=== PATIENT | female | born 2000 | race Caucasian/White ===

== ENCOUNTER → 2023-12-24 | Outpatient (CLI) | payer OTHER | LOC: M RAD 12:28 | PROVIDERS: ATTEND Student in an Organized Health Care Education/Training Program | DX: M54.50 Low back pain, unspecified (principal) ==

== ENCOUNTER → 2025-02-15 | Outpatient (CLI) | payer BC | LOC: M LAB 16:04 | PROVIDERS: ATTEND Nurse Practitioner Family | DX: O26.851 Spotting complicating pregnancy, first trimester (principal) ==